=== PATIENT | male | born 1995 | race Caucasian/White ===

== ENCOUNTER → 2018-05-03 | Outpatient (CLI) | payer BC ==
[~2018-05-03] MED LIST: ARIP20TA11 PO; CETI-184 PO; VENL100T22 PO
== END ==
LOC: LAB 16:50
PROVIDERS: ATTEND Family Medicine
DX: R03.0 Elevated blood-pressure reading, without diagnosis of hypertension (principal)

== ENCOUNTER → 2018-05-10 | Outpatient (CLI) | payer BC | LOC: LAB 08:31 | PROVIDERS: ATTEND Family Medicine | DX: R03.0 Elevated blood-pressure reading, without diagnosis of hypertension (principal) | CPT/HCPCS: 82533; 82570 ==

== ENCOUNTER 2018-09-08 07:34 | Emergency (ER) | payer BC ==
[2018-09-08] MEDS ORDERED: ONDANSETRON 4 MG/2 ML VIAL IVP ONE (08:00)
[2018-09-08] MEDS ORDERED: KETOROLAC 15 MG/ML VIAL IVP ONE (08:00)
--- NOTE | 2018-09-08 08:06 | ER Report ---
History and Physical Time Seen By MD: 07:45 Hx. of Stated Complaint: pt reports pain in shaft of penis. pain on urination HPI/ROS CHIEF COMPLAINT: Painful urination HISTORY OF PRESENT ILLNESS: Patient awoke at 6 AM with pain located in the shaft of his penis. Pain is 7-1/2 out of 10 and constant. Patient has not had this pain before. Pain radiates throughout penis, testicles, lower abdomen. Pain is worse with urination. Patient has urinated multiple times this morning which she states is normal for him. Urine appears normal without pus or blood. Patient has had kidney stone previously though this does not feel like that. Patient also admits that he stuck a daron in his penis about 3-4 years ago but has not had com plications from this. Patient denies doing that at this time. Patient denies being sexually active. He denies fever, chills, vomiting, chest pain, shortness of breath, rashes. There are no lesions on the penis. REVIEW OF SYSTEMS: Constitutional: No fever, no chills. Eyes: No discharge. ENT: No sore throat. Cardiovascular: No chest pain, no palpitations. Respiratory: No cough, no shortness of breath. Gastrointestinal: lower abdominal pain. Mild nausea Genitourinary: No hematuria, and as above Musculoskeletal: No back pain. Skin: No rashes. Neurological: No headache. Remainder of the 14 system rev: Yes Allergies: Uncoded Allergies: SEASONAL ALLERGIES (Allergy, Intermediate, 06/09/16) TAKES MEDICATION DAILY Home Meds Reported Medications Albuterol Sulfate (VENTOLIN HFA) 18 Gm Inh, 1-2 PUFF INH 3-4XD, INH 09/08/18 Lisinopril (LISINOPRIL) 5 Mg Tablet, 5 MG PO QDAY, TAB 09/08/18 Clonidine Hcl (CLONIDINE HCL) 0.1 Mg Tablet, 0.1 MG PO BID, TAB 09/08/18 Cetirizine Hcl (CETIRIZINE HCL) 10 Mg Tab.chew, 10 MG PO QDAY, TAB.CHEW 06/09/16 Aripiprazole (ABILIFY) 20 Mg Tablet, 20 MG PO HS, TAB 06/09/16 Venlafaxine Hcl (VENLAFAXINE HCL) 100 Mg Tablet, 300 MG PO DAILY 06/09/16 Reviewed Nurses Notes: Yes Hx Smoking: No Hx Substance Use Disorder: No Hx Alcohol Use: No Constitutional Vital Sign - Last 24 Hours 09/08/18 09/08/18 09/08/18 09/08/18 07:34 07:38 07:43 07:49 Temp 98.7 Pulse ??? 93 92 Resp 18 B/P (MAP) 148/88 148/88 (108) Pulse Ox 92 93 O2 Delivery Room Air 09/08/18 09/08/18 09/08/18 09/08/18 08:08 08:19 08:30 08:34 Pulse 76 ??? B/P (MAP) 134/80 (98) 129/72 (91) Pulse Ox 93 93 09/08/18 09/08/18 09/08/18 09/08/18 08:49 09:19 09:24 09:30 Pulse 79 ??? 72 B/P (MAP) 126/72 (90) Pulse Ox 94 94 09/08/18 09/08/18 09/08/18 09/08/18 09:54 10:00 10:09 10:22 Pulse 84 ??? B/P (MAP) 134/80 (98) Pulse Ox 95 95 O2 Flow Rate 2.0 09/08/18 09/08/18 10:24 10:28 Pulse 90 B/P (MAP) 125/82 (96) Pulse Ox 92 Physical Exam General Appearance: The patient is alert, has no immediate need for airway protection and no signs of toxicity. Eyes: Pupils equal and round no pallor or injection. ENT, Mouth: Mucous membranes are moist. Respiratory: There are no retractions, lungs are clear to auscultation. Cardiovascular: Regular rate and rhythm. Gastrointestinal: abdomen is nondistended; mildly tender throughout without peritoneal sgs. No CVAT. No masses. - circumsized penis with very mild inflamation of the left base of the glans, without e/o cellulitis. Testes soft nl lie, with mild bilat ttp. TTP greatest along l spermatic cord though without scrotal edema, or masses. No hernia. Nl cremasterics. Neurological: alert, oriented, cn's grossly intact Skin: Warm and dry, no rashes. Musculoskeletal: Extremities are nontender, nonswollen and have full range of motion. DIFFERENTIAL DIAGNOSIS: After history and physical exam differential diagnosis was considered for testicular torsion, infection/cellulitis/hernia, jenni's or other emergent etiology Medical Decision Making Data Points Result Diagram: 09/08/18 0000 09/08/18 0000 Laboratory Hematology Test 09/08/18 00:00 09/08/18 06:40 Red Blood Count 5.43 M/uL (4.00-5.60) Mean Corpuscular Volume 87.3 fL (80.0-96.0) Mean Corpuscular Hemoglobin 30.0 pg (26.0-33.0) Mean Corpuscular Hemoglobin Concent 34.4 g/dL (32.0-36.0) Red Cell Distribution Width 13.0 % (11.5-14.5) Mean Platelet Volume 7.5 fL (7.2-11.1) Neutrophils (%) (Auto) 83.7 % (39.4-72.5) Lymphocytes (%) (Auto) 7.6 % (17.6-49.6) Monocytes (%) (Auto) 8.2 % (4.1-12.4) Eosinophils (%) (Auto) 0.2 % (0.4-6.7) Basophils (%) (Auto) 0.3 % (0.3-1.4) Nucleated RBC Relative Count (auto) 0.0 /100WBC Neutrophils # (Auto) 13.5 K/uL (2.0-7.4) Lymphocytes # (Auto) 1.2 K/uL (1.3-3.6) Monocytes # (Auto) 1.3 K/uL (0.3-1.0) Eosinophils # (Auto) 0.0 K/uL (0.0-0.5) Basophils # (Auto) 0.0 K/uL (0.0-0.1) Nucleated RBC Absolute Count (auto) 0.01 K/uL Sodium Level 141 mmol/L (137-145) Potassium Level 3.9 mmol/L (3.5-5.0) Chloride Level 107 mmol/L (98-107) Carbon Dioxide Level 25 mmol/L (22-30) Blood Urea Nitrogen 10 mg/dl (9-21) Creatinine 0.80 mg/dl (0.66-1.25) Glomerular Filtration Rate Calc > 60.0 Random Glucose 85 mg/dl (75-110) Calcium Level 9.0 mg/dl (8.4-10.2) Urine Color Straw Urine Clarity Clear Urine pH 6.0 pH (4.8-9.5) Urine Specific Steens 1.004 Urine Protein Negative mg/dL (NEGATIVE) Urine Glucose (UA) Negative mg/dL (NEGATIVE) Urine Ketones Negative mg/dL (NEGATIVE) Urine Blood Negative (NEGATIVE) Urine Nitrite Negative (NEGATIVE) Urine Bilirubin Negative (NEGATIVE) Urine Urobilinogen Negative mg/dL (0.2-1.9) Urine Leukocyte Esterase Negative (NEGATIVE) Urine RBC None /HPF (0-2/HPF) Urine WBC 2 /HPF (0-5/HPF) Urine Squamous Epithelial Cells Few /LPF (</=FEW) Urine Bacteria Negative /HPF (NONE-FEW) Urine Mucus None /HPF (NONE-FEW) Chemistry Test 09/08/18 00:00 09/08/18 06:40 White Blood Count 16.2 k/uL (4.5-11.0) Red Blood Count 5.43 M/uL (4.00-5.60) Hemoglobin 16.3 g/dL (14.0-18.0) Hematocrit 47.4 % (42.0-52.0) Mean Corpuscular Volume 87.3 fL (80.0-96.0) Mean Corpuscular Hemoglobin 30.0 pg (26.0-33.0) Mean Corpuscular Hemoglobin Concent 34.4 g/dL (32.0-36.0) Red Cell Distribution Width 13.0 % (11.5-14.5) Platelet Count 288 K/uL (150-450) Mean Platelet Volume 7.5 fL (7.2-11.1) Neutrophils (%) (Auto) 83.7 % (39.4-72.5) Lymphocytes (%) (Auto) 7.6 % (17.6-49.6) Monocytes (%) (Auto) 8.2 % (4.1-12.4) Eosinophils (%) (Auto) 0.2 % (0.4-6.7) Basophils (%) (Auto) 0.3 % (0.3-1.4) Nucleated RBC Relative Count (auto) 0.0 /100WBC Neutrophils # (Auto) 13.5 K/uL (2.0-7.4) Lymphocytes # (Auto) 1.2 K/uL (1.3-3.6) Monocytes # (Auto) 1.3 K/uL (0.3-1.0) Eosinophils # (Auto) 0.0 K/uL (0.0-0.5) Basophils # (Auto) 0.0 K/uL (0.0-0.1) Nucleated RBC Absolute Count (auto) 0.01 K/uL Glomerular Filtration Rate Calc > 60.0 Calcium Level 9.0 mg/dl (8.4-10.2) Urine Color Straw Urine Clarity Clear Urine pH 6.0 pH (4.8-9.5) Urine Specific Steens 1.004 Urine Protein Negative mg/dL (NEGATIVE) Urine Glucose (UA) Negative mg/dL (NEGATIVE) Urine Ketones Negative mg/dL (NEGATIVE) Urine Blood Negative (NEGATIVE) Urine Nitrite Negative (NEGATIVE) Urine Bilirubin Negative (NEGATIVE) Urine Urobilinogen Negative mg/dL (0.2-1.9) Urine Leukocyte Esterase Negative (NEGATIVE) Urine RBC None /HPF (0-2/HPF) Urine WBC 2 /HPF (0-5/HPF) Urine Squamous Epithelial Cells Few /LPF (</=FEW) Urine Bacteria Negative /HPF (NONE-FEW) Urine Mucus None /HPF (NONE-FEW) Urinalysis Test 09/08/18 06:40 Urine Color Straw Urine Clarity Clear Urine pH 6.0 pH (4.8-9.5) Urine Specific Steens 1.004 Urine Protein Negative mg/dL (NEGATIVE) Urine Glucose (UA) Negative mg/dL (NEGATIVE) Urine Ketones Negative mg/dL (NEGATIVE) Urine Blood Negative (NEGATIVE) Urine Nitrite Negative (NEGATIVE) Urine Bilirubin Negative (NEGATIVE) Urine Urobilinogen Negative mg/dL (0.2-1.9) Urine Leukocyte Esterase Negative (NEGATIVE) Urine RBC None /HPF (0-2/HPF) Urine WBC 2 /HPF (0-5/HPF) Urine Squamous Epithelial Cells Few /LPF (</=FEW) Urine Bacteria Negative /HPF (NONE-FEW) Urine Mucus None /HPF (NONE-FEW) Microbiology Microbiology Date/Time Source Procedure Growth Status 09/08/18 06:40 Clean Catch Midstream Ur Urine Culture - Preliminary Gram Positive Cocci Resulted ED Course/Re-evaluation ED Course Pt presents with left sided pain without clear findings on exam or imaging. Leukocytosis is noted and discussed at length with pt. Ultimately, I doubt torsion, cellultiis/jenni's/inguinal hernia, or other emergent etiology. However, pt agrees to return tomorrow for continued pain for re-eval, sooner if wrose, and f/u with pcm for further eval for any concerns. Decision to Disposition Date: Sep 08, 2018 Decision to Disposition Time: 10:30 Depart Departure Latest Vital Signs Vital Signs Date Time Temp Pulse Resp B/P (MAP) Pulse Ox O2 Delivery O2 Flow Rate FiO2 09/08/18 10:28 125/82 (96) 09/08/18 10:24 90 92 09/08/18 10:22 2.0 09/08/18 07:38 98.7 18 Room Air Impression: Primary Impression: Genitourinary pain Condition: Condition Unchanged Disposition: HOME OR SELF-CARE Referrals: MAGDA FLETCHER DO (PCP) 2 Days Departure Forms: ER Transition Record, Medications Reconciliation, Off Work/School Form, School or Work Release?: Work Number of days to be released: 2 Patient Portal Information Patient Instructions: Abdominal Pain (ED) Additional Instructions: As we discussed, at this point it is not clear what is causing your pain. Because of your ongoing pain and inflammatory cells (white blood cells), despite non-diagnostic ultrasound and CT, I would like you to return for re-evaluation by me tomorrow. Please return sooner if you have any concerning increase in pain, vomiting, fever, or feeling worse. Even if your pain goes away completely, please follow up with your primary doctor in 2-5 days to recheck your blood counts. JESSIE GRAYSON MD Sep 08, 2018 08:06
[2018-09-08 08:27] LABS: PLATELET COUNT, AUTOMATED 288 K/uL (150-450)
[2018-09-08] MEDS ORDERED: IOPAMIDOL 76% 75 ML INFUS BTL 75 ML ONE ×2 (09:08→09:19)
--- NOTE | 2018-09-08 09:29 | RADIOLOGY IMAGING REPORT ---
FACILITY: [facility] PATIENT NAME: Arnulfo Bowman : 1995 MR: [id number] V: [id number] EXAM DATE: ORDERING PHYSICIAN: JESSIE GRAYSON TECHNOLOGIST: Location: [facility] Patient: Arnulfo Bowman : 1995 Visit/Account:[id number] Date of Sevice: 09/08/2018 TESTICULAR HISTORY: testicular tenderness ADDITIONAL HISTORY: None. COMPARISON: None. FINDINGS: Testes: Unremarkable. Symmetric and unremarkable blood flow documented by color and Duplex Doppler ultrasound. Epididymides: 3 mm cyst in the left epididymal head. Otherwise unremarkable. Blood flow is unremarkable in each epididymis by color Doppler ultrasound. Hydrocele: None. Varicocele: There are bilateral varicoceles with vessels distended to slightly greater than 3 mm on b oth sides with Valsalva maneuver. IMPRESSION: Bilateral varicoceles. Otherwise unremarkable study Report Dictated By: Yg Tijerina MD at 09/08/2018 9:18 AM Report E-Signed By: Yg Tijerina MD at 09/08/2018 9:24 AM WSN:[email or web address]
--- NOTE | 2018-09-08 09:52 | RADIOLOGY IMAGING REPORT ---
FACILITY: [facility] PATIENT NAME: Arnulfo Bowman : 1995 MR: [id number] V: [id number] EXAM DATE: ORDERING PHYSICIAN: JESSIE GRAYSON TECHNOLOGIST: Location: [facility] Patient: Arnulfo Bowman : 1995 Visit/Account:[id number] Date of Sevice: 09/08/2018 ABDOMEN/PELVIS WITH CONTRAST HISTORY: Lower Abdomen pain, leukocytosis TECHNIQUE: Following administration of IV contrast contiguous axial images acquired through the abdom en/pelvis. Coronal and sagittal reformatting also performed.Dose Lowering Technique One of the following dose optimization techniques was utilized in the performance of this exam: Autom ated exposure control; adjustment of the mA and/or kV according to the patient's size; or use of an i terative reconstruction technique. Specific details can be referenced in the facility's radiology C T exam operational policy. CONTRAST: 75 mL [id number] COMPARISON: July 05, 2017 FINDINGS: Visualized lung bases: Negative. Hepatobiliary: Negative. Spleen: Negative. Adrenals: Negative. Pancreas: Negative. Kidneys ureters or bladder: Negative. Genitalia: Negative. GI: The appendix is visualized does not appear inflamed. A small amount of hyperdense material is n oted within the appendix which could represent tiny appendicoliths. No evidence of bowel obstruction or bowel wall thickening Vessels/spaces/nodes: Negative. Bones/soft tissues: There is a tiny right inguinal hernia containing fat Additional findings: None pertinent. IMPRESSION: There is an incidental tiny right inguinal hernia containing fat A small amount of hyperdense material is noted within the pancreas which could represent tiny appendi coliths however there is no evidence of appendiceal dilatation, thickening or surrounding inflammator y change No evidence of nephrolithiasis Report Dictated By: Ketty Vila MD at 09/08/2018 9:28 AM Report E-Signed By: Ketty Vila MD at 09/08/2018 9:47 AM WSN:JOSE
[2018-09-08 10:28] VITALS: BP 125/82
[2018-09-08] MEDS ORDERED: ALB18R INH (10:37)
[2018-09-08] MEDS ORDERED: LISI5TAB25 PO (10:37)
[2018-09-08] MEDS ORDERED: CLON-327 PO (10:37)
--- NOTE | 2018-09-10 13:35 | Miscellaneous Provider Note ---
Miscellaneous Provider Note Note I receved urine culture result on 09/10 showing strep agalactiae group B as predominate organism in mixed culture. Upon review of pt's chart, he did not have any inflammatory signs in urine and did not have clear symptoms of uti. This is likely colonizer as opposed to pathogen. I called and left message with pt to re-evaluate symptoms. Would withhold tx at this point unless pt has uti symptoms. JESSIE GRAYSON MD Sep 10, 2018 13:35
== END 2018-09-08 10:42 | disposition home or self-care (01) ==
LOC: ER 07:49
DX: N50.89 Other specified disorders of the male genital organs (principal)
CPT/HCPCS: 74177; 76870; 81001; 85025; 87077; 87088; 87186; 87491; 87591; 96374; 96375; 99284; J1885; J2405; Q9967; 82310; 82374; 82435; 82565; 82947; 84132; 84295; 84520